=== PATIENT | female | born 1960 | race Caucasian/White ===

== ENCOUNTER 2017-02-12 17:38 | Emergency (ER) | payer BC ==
[2017-02-12 19:50] VITALS: BP 104/63
--- NOTE | 2017-02-12 20:12 | UC ---
Complaint Female HPI - HPI Summary HPI Summary: began with UTI SX earlier today took an AZO to manage the discomfort at noon today--frequency, urgency burning no fevers nausea or back pain - History Of Current Complaint Chief Complaint: UCGU Stated Complaint: UTI SYMPTOMS Time Seen by Provider: 02/12/17 20:10 Hx Obtained From: Patient Hx Last Menstrual Period: has IUD ?: No Onset/Duration: Sudden Onset, Still Present Timing: Constant Severity Initially: Moderate Severity Currently: Moderate Pain Intensity: 5 Pain Scale Used: 0-10 Numeric Character: Burning Aggravating Factor(s): Urination Alleviating Factor(s): Meds - Azo Associated Signs And Symptoms: Positive: Negative - Allergies/Home Medications Allergies/Adverse Reactions: Allergies Allergy/AdvReac Type Severity Reaction Status Date / Time Penicillins Allergy Hives Verified 02/12/17 19:51 feather pillows Allergy Intermediate Wheezing Uncoded 02/12/17 19:51 Home Medications: Home Medications Multiple Vitamins W/ Minerals [Multivitamin Womens] 1 tab PO DAILY 02/12/17 [ History Confirmed 02/12/17] Phenazopyridine HCl [Azo Urinary Pain Relief] 95 mg PO ONCE PRN 02/12/17 [ History Confirmed 02/12/17] PMH/Surg Hx/FS Hx/Imm Hx GI/ History: Other Other GI/ History: urinary infections - Surgical History Surgical History: Yes Surgery Procedure, Year, and Place: Dental Extraction - Family History Known Family History: Negative: Diabetes Family History: no medical issues reported in family lineage - Social History Occupation: Employed Full-time Lives: With Family Alcohol Use: Occasionally Substance Use Type: None Smoking Status (MU): Never Smoked Tobacco - Immunization History Most Recent Influenza Vaccination: none Review of Systems Constitutional: Negative Skin: Negative Eyes: Negative ENT: Negative Respiratory: Negative Cardiovascular: Negative Gastrointestinal: Negative Genitourinary: Dysuria, Frequency, Urgency Motor: Negative Neurovascular: Negative Musculoskeletal: Negative Neurological: Negative Psychological: Negative All Other Systems Reviewed And Are Negative: Yes Physical Exam Triage Information Reviewed: Yes Appearance: Well-Appearing, No Pain Distress, Well-Nourished Vital Signs: Initial Vital Signs Temp 98 F 02/12/17 19:44 Pulse 64 02/12/17 19:44 Resp 16 02/12/17 19:44 BP 104/63 02/12/17 19:44 Pulse Ox 97 02/12/17 19:44 Vital Signs Reviewed: Yes Eye Exam: Normal Eyes: Positive: Conjunctiva Clear ENT Exam: Normal ENT: Positive: Normal ENT inspection, Hearing grossly normal. Negative: Nasal congestion, Nasal drainage, Trismus, Muffled/hoarse voice Neck exam: Normal Neck: Positive: Supple, Nontender Respiratory Exam: Normal Respiratory: Positive: Chest non-tender, No respiratory distress, No accessory muscle use Cardiovascular Exam: Normal Cardiovascular: Positive: Pulses Normal, Brisk Capillary Refill Abdominal Exam: Normal Abdomen Description: Positive: Nontender, Soft Musculoskeletal Exam: Normal Musculoskeletal: Positive: Strength Intact, ROM Intact, No Edema Neurological Exam: Normal Neurological: Positive: Alert, Muscle Tone Normal Psychological Exam: Normal Skin Exam: Normal Complaint Female Dx - Course Course Of Treatment: culture urine, increase fluids, azo prn bactrim for 7 days - Differential Dx/Diagnosis Differential Diagnosis/HQI/PQRI: Renal Colic, Ureteral Stone, Urinary Tract Infection Provider Diagnoses: UTI Discharge - Discharge Plan Condition: Stable Disposition: HOME Prescriptions: Sulfamethox/Trimethoprim DS* [Bactrim DS 800/160 TAB*] 1 tab PO BID #14 tab Patient Education Materials: Sulfamethoxazole/Trimethoprim (By mouth), Urinary Tract Infection in Women (ED) Referrals: João Fitzgerald MD [Primary Care Provider] - 2 Weeks
== END 2017-02-12 20:24 | disposition home or self-care (01) ==
LOC: UCCORT 17:38
DX: N39.0 Urinary tract infection, site not specified (principal)
CPT/HCPCS: 87086; 99212; G0463

== ENCOUNTER 2017-05-08 18:14 | Emergency (ER) | payer BC ==
[2017-05-08 21:03] VITALS: BP 121/69
--- NOTE | 2017-05-08 21:08 | UC ---
Complaint Female HPI - History Of Current Complaint Stated Complaint: UTI Time Seen by Provider: 05/08/17 20:53 Hx Last Menstrual Period: has IUD - Allergies/Home Medications Allergies/Adverse Reactions: Allergies Allergy/AdvReac Type Severity Reaction Status Date / Time Penicillins Allergy Hives Verified 05/08/17 20:58 feather pillows Allergy Intermediate Wheezing Uncoded 05/08/17 20:58 PMH/Surg Hx/FS Hx/Imm Hx - Surgical History Surgical History: Yes Surgery Procedure, Year, and Place: Dental Extraction - Family History Known Family History: Negative: Diabetes Family History: no medical issues reported in family lineage - Social History Alcohol Use: Occasionally Substance Use Type: None Smoking Status (MU): Never Smoked Tobacco - Immunization History Most Recent Influenza Vaccination: none
[2017-05-08] MEDS ORDERED: Nitrofurantoin Macrocrystals* 50 MG CAP PO ONE (21:21)
--- NOTE | 2017-05-11 10:26 | UC ---
Progress - Progress Note Progress Note: Pt on Marobid for UTI + e. coli await sensitivities No current change 05/11/2017 Mirlande
== END 2017-05-08 21:30 | disposition home or self-care (01) ==
LOC: UCCORT 18:14
DX: N39.0 Urinary tract infection, site not specified (principal); B96.20 Unspecified Escherichia coli [E. coli] as the cause of diseases classified elsewhere; Z97.5 Presence of (intrauterine) contraceptive device; Z88.0 Allergy status to penicillin
CPT/HCPCS: 87077; 87086; 87186; 87798; 99212; A9270-GY; G0463

== ENCOUNTER 2017-06-10 07:37 | Emergency (ER) | payer BC ==
[2017-06-10 07:49] VITALS: BP 126/74
--- NOTE | 2017-06-10 08:07 | UC ---
Bite Injury/Animal HPI - HPI Summary HPI Summary: Pt found a tick on her RUE this morning. Pt thinks came into house with dog this morning. was not present last night Pt states pulled off, but unable to get head out Pt not immunocompromised.No pain Pt unsure when last tdap Pt's medications reviewed this visit - History of Current Complaint Chief Complaint: UCSkin Stated Complaint: TICK Time Seen by Provider: 06/10/17 07:44 Hx Obtained From: Patient Hx Last Menstrual Period: over one year Severity Currently: None Type of Bite: Wild Animal - tick Aggravating Factor(s): Nothing Alleviating Factor(s): Nothing Associated Signs And Symptoms: Positive: Negative - Allergies/Home Medications Allergies/Adverse Reactions: Allergies Allergy/AdvReac Type Severity Reaction Status Date / Time Penicillins Allergy Hives Verified 06/10/17 07:49 feather pillows Allergy Intermediate Wheezing Uncoded 06/10/17 07:49 PMH/Surg Hx/FS Hx/Imm Hx Previously Healthy: Yes - Surgical History Surgical History: Yes Surgery Procedure, Year, and Place: Dental Extraction - Family History Known Family History: Negative: Diabetes Family History: no medical issues reported in family lineage - Social History Alcohol Use: Occasionally Substance Use Type: None Smoking Status (MU): Never Smoked Tobacco - Immunization History Most Recent Influenza Vaccination: none Review of Systems Constitutional: Negative Skin: Other - foreign body - retained tick part All Other Systems Reviewed And Are Negative: Yes Physical Exam Triage Information Reviewed: Yes Appearance: Well-Appearing, No Pain Distress, Well-Nourished Vital Signs: Initial Vital Signs Temp 98.9 F 06/10/17 07:44 Pulse 84 06/10/17 07:44 Resp 12 06/10/17 07:44 BP 126/74 06/10/17 07:44 Vital Signs Reviewed: Yes Eye Exam: Normal Eyes: Negative: Discharge ENT Exam: Normal ENT: Positive: Hearing grossly normal Respiratory: Positive: No respiratory distress, No accessory muscle use Cardiovascular: Positive: Brisk Capillary Refill Musculoskeletal Exam: Normal Neurological Exam: Normal Psychological Exam: Normal Skin: Positive: Other - right prox/anterior humerus - pt wit 5mm [place] of erythema with visible retained tick head in middle Bite Injury Course/Dx - Course Course Of Treatment: Pt presents with retained tick head in right upper arm. area anethetized with let. cleaned with chlorexadene. Using splinter forceps removed retained head. covered with abx ointment and bandage. pt tolerated well. pt declined tdap - will d/w with PCP at physical in Nov. reviewed with pt CDC recommendations for prophylaxis - will hold for now. s/s infection reviewed. pt comfortable and in agreement withplan - Differential Dx/Diagnosis Provider Diagnoses: tick bite. retained fb removed Discharge - Discharge Plan Condition: Stable Disposition: HOME Patient Education Materials: Tick Bite (ED) Forms: *Work Release Referrals: João Fitzgerald MD [Primary Care Provider] - Additional Instructions: - Keep area clean. Wash with warm soapy water 2 times day, pat dry - cover with thin layer of antibiotic ointment and a bandaid - okay to ibuprofen (advil, motrin) and tylenol every 3 every hours as needed for pain. - monitor your wound for signs of infection -reddness, red streaking, odor, pus , drainage - call your doctor or return with questions or concerns - contact your doctor or return with questions or concerns Lyme Dx - Approach to prophylaxis : According to the Infectious Diseases Society of [place] (IDSA) guidelines that recommend antibiotic prophylaxis only in patients who meet all of the following criteria: 1. Attached tick identified as an adult or nymphal I. scapularis tick (deer tick). 2. Tick is estimated to have been attached for 36 hours (by degree of engorgement or time of exposure). 3. Prophylaxis is begun within 72 hours of tick removal. Local rate of infection of ticks with B. burgdorferi is 20 percent if attached for over 48 hours (these rates of infection have been shown to occur in parts of [place], parts of the [facility], and parts of [place] and [place]). If you experience a tick and time of attachment is believed to be less than 36 hours, you may remove the tick with head intact and no need for prophylaxis. If over 36 hours, please come into UC. Prophylactic doxycycline is not recommended for ticks attached less than 36 hours.
[2017-06-10] MEDS ORDERED: Ibuprofen TAB* 200 MG PO ONE (08:22)
[2017-06-10] MEDS ORDERED: Lidocaine/Epineph/Tetraca SOL* (LET solution) 4 ML BTL TOPICAL ONE (08:22)
== END 2017-06-10 09:19 | disposition home or self-care (01) ==
LOC: UCCORT 07:37
DX: T14.8XXA Other injury of unspecified body region, initial encounter (principal); Z88.0 Allergy status to penicillin
CPT/HCPCS: 10120; 99212; A9270-GY; G0463

== ENCOUNTER 2018-01-10 15:59 | Emergency (ER) | payer BC ==
--- NOTE | 2018-01-10 16:32 | UC ---
Complaint Female HPI - HPI Summary HPI Summary: 57 yo female presents with urinary burning, frequency, and bladder pressure yesterday. She tells me that she gets UTIs a few times a year and this feels the same. Has been drinking cranberry juice with mild relief of symptoms. Denies fever, chills, flank pain, hematuria, n/v, or vaginal discharge. - History Of Current Complaint Stated Complaint: URINARY COMPLAINT Time Seen by Provider: 01/10/18 16:31 Hx Obtained From: Patient Hx Last Menstrual Period: over one year Onset/Duration: Sudden Onset Timing: Constant Severity Initially: Mild Severity Currently: Mild Pain Intensity: 3 Pain Scale Used: 0-10 Numeric - Allergies/Home Medications Allergies/Adverse Reactions: Allergies Allergy/AdvReac Type Severity Reaction Status Date / Time Penicillins Allergy Hives Verified 11/09/17 10:07 feather pillows Allergy Intermediate Wheezing, Uncoded 11/09/17 10:07 Vomiting Home Medications: Home Medications Cranberry Fruit Concentrate [Azo Cranberry] 1 each PO DAILY 01/10/18 [History Confirmed 01/10/18] PMH/Surg Hx/FS Hx/Imm Hx - Additional Past Medical History Additional PMH: None Previously Healthy: Yes - Surgical History Surgical History: Yes Surgery Procedure, Year, and Place: Dental Extraction - Family History Known Family History: Negative: Diabetes Family History: no medical issues reported in family lineage - Social History Occupation: Employed Full-time Lives: With Family Alcohol Use: Occasionally Substance Use Type: None Smoking Status (MU): Never Smoked Tobacco - Immunization History Most Recent Influenza Vaccination: none Review of Systems Constitutional: Negative Skin: Negative Respiratory: Negative Cardiovascular: Negative Gastrointestinal: Negative Genitourinary: Dysuria, Frequency, Urgency Neurological: Negative Psychological: Negative All Other Systems Reviewed And Are Negative: Yes Physical Exam - Summary Physical Exam Summary: GENERAL: NAD. WDWN. No pain distress. SKIN: No rashes, sores, lesions, or open wounds. NECK: Supple. Nontender. No lymphadenopathy. CHEST: CTAB. No r/r/w. No accessory muscle use. Breathing comfortably and in no distress. CV: RRR. Without m/r/g. Pulses intact. Brisk cap refill. ABDOMEN: Soft. NTTP. No distention or guarding. No organomegaly. No CVA tenderness. Bowel sounds present NEURO: Alert. CN II-XII grossly intact. PSYCH: Age appropriate behavior. Triage Information Reviewed: Yes Complaint Female Dx - Course Course Of Treatment: UA with trace blood and 3+ leuks. Last Urine culture shows e coli sensitive to macrobid. Will rx macrobid. - Differential Dx/Diagnosis Provider Diagnoses: UTI Discharge - Sign-Out/Discharge Documenting (check all that apply): Discharge/Admit/Transfer - Discharge Plan Condition: Stable Disposition: HOME Prescriptions: Nitrofurantoin Monohyd/M-Cryst [Macrobid 100 mg Capsule] 100 mg PO BID #10 cap Patient Education Materials: Urinary Tract Infection in Women (ED) Referrals: Wesley Scales MD [Primary Care Provider] - Additional Instructions: If you develop a fever, shortness of breath, chest pain, new or worsening symptoms - please call your PCP or go to the ED. - Billing Disposition and Condition Condition: STABLE Disposition: HOME
[2018-01-10 16:33] VITALS: BP 117/65
== END 2018-01-10 16:52 | disposition home or self-care (01) ==
LOC: UCCORT 16:01
DX: N39.0 Urinary tract infection, site not specified (principal); Z88.0 Allergy status to penicillin
CPT/HCPCS: 81003; 87077; 87086; 87186; 99212; G0463

== ENCOUNTER 2018-04-17 07:36 | Emergency (ER) | payer BC ==
[2018-04-17 07:52] VITALS: BP 122/59
--- NOTE | 2018-04-17 08:11 | UC ---
Complaint Female HPI - HPI Summary HPI Summary: Started yesterday with urinary frequency urgency and dysuria. Some sweats and chills. - History Of Current Complaint Chief Complaint: UCGU Stated Complaint: URINARY Time Seen by Provider: 04/17/18 07:51 Hx Obtained From: Patient Hx Last Menstrual Period: over one year ?: No Onset/Duration: Sudden Onset, Lasting Days - 1 Timing: Constant Severity Initially: Moderate Severity Currently: None Pain Intensity: 0 Character: Sharp, Burning Aggravating Factor(s): Urination Alleviating Factor(s): Meds - Azo Associated Signs And Symptoms: Negative: Fever, Back Pain, Vaginal Bleeding/ Discharge, Nausea, Vomiting(# Of Episodes =), Genital Swelling, Genital Blisters Related Hx: Similar Episode/Dx as: - UTI - Allergies/Home Medications Allergies/Adverse Reactions: Allergies Allergy/AdvReac Type Severity Reaction Status Date / Time Penicillins Allergy Hives Verified 04/17/18 07:49 PMH/Surg Hx/FS Hx/Imm Hx Previously Healthy: Yes - Surgical History Surgical History: Yes Surgery Procedure, Year, and Place: Dental Extraction - Family History Known Family History: Positive: Hypertension Negative: Diabetes Family History: no medical issues reported in family lineage - Social History Occupation: Employed Full-time Lives: With Family Alcohol Use: Occasionally Substance Use Type: None Smoking Status (MU): Never Smoked Tobacco - Immunization History Most Recent Influenza Vaccination: none Most Recent Tetanus Shot: UTD Review of Systems Constitutional: Chills Genitourinary: Dysuria, Frequency, Urgency Is Patient Immunocompromised?: No All Other Systems Reviewed And Are Negative: Yes Physical Exam Triage Information Reviewed: Yes Appearance: Well-Appearing, No Pain Distress, Well-Nourished Vital Signs: Initial Vital Signs Temp 98.2 F 04/17/18 07:47 Pulse 64 04/17/18 07:47 Resp 16 04/17/18 07:47 BP 122/59 04/17/18 07:47 Pulse Ox 99 04/17/18 07:47 Vital Signs Reviewed: Yes Eyes: Positive: Conjunctiva Clear Neck exam: Normal Respiratory Exam: Normal Cardiovascular Exam: Normal Abdomen Description: Positive: Nontender, No Organomegaly. Negative: CVA Tenderness (R), CVA Tenderness (L) Musculoskeletal Exam: Normal Neurological Exam: Normal Psychological Exam: Normal Skin Exam: Normal Complaint Female Dx - Differential Dx/Diagnosis Differential Diagnosis/HQI/PQRI: Appendicitis, Ovarian Cyst, Ureteral Stone, Urinary Tract Infection Provider Diagnoses: Acute cystitis without hematuria Discharge - Sign-Out/Discharge Documenting (check all that apply): Patient Departure All imaging exams completed and their final reports reviewed: No Studies - Discharge Plan Condition: Stable Disposition: HOME Prescriptions: Sulfamethox/Trimethoprim DS* [Bactrim DS 800/160 TAB*] 1 tab PO BID #10 tab Patient Education Materials: Urinary Tract Infection in Women (ED), Sulfamethoxazole/Trimethoprim (By mouth) Referrals: Rustam Dwyer DO [Primary Care Provider] - - Billing Disposition and Condition Condition: STABLE Disposition: Home
== END 2018-04-17 08:24 | disposition home or self-care (01) ==
LOC: UCCORT 07:36
DX: N30.00 Acute cystitis without hematuria (principal); Z88.0 Allergy status to penicillin
CPT/HCPCS: 87077; 87086; 87186; 99212; G0463